=== PATIENT | male | born 1970 | race Caucasian/White ===

== ENCOUNTER → 2016-11-29 | Outpatient (CLI) | payer BC ==
[2016-11-29 07:51] LABS: BASO % 0.3 % (0.0-1.0); EOS # 0.1 10^3/uL (0.0-0.50); EOS % 1.8 % (0.0-3.0); IMMATURE GRANULOCYTE % 0.7 % (0-0); LYMPH # 3.2 10^3/uL (1.5-4.5); LYMPH % 45.1 % (24.0-44.0); MEAN CORPUSCULAR HEMOGLOBIN 30.8 pg (27.0-33.0); MEAN CORPUSCULAR HGB CONC 34.1 g/dl (32.0-36.5); MEAN CORPUSCULAR VOLUME 90.4 fl (80.0-96.0); MONO # 0.6 10^3/uL (0.0-0.8); NEUTROPHILS # 3.1 10^3/uL (1.8-7.7); NEUTROPHILS % 44.1 % (36.0-66.0); PLATELET COUNT, AUTOMATED 268 10^3/uL (150-450); RED CELL DISTRIBUTION WIDTH 12.3 % (11.5-14.5); WHITE BLOOD COUNT 7.1 10^3/uL (4.0-10.0)
[2016-11-29 08:28] LABS: ALBUMIN 3.7 GM/DL (3.2-5.2); ALBUMIN/GLOBULIN RATIO 1.09 (1.00-1.93); ALKALINE PHOSPHATASE 78 U/L (45-117); ALT/SGPT 44 U/L (12-78); ANION GAP 6 MEQ/L (8-16); AST/SGOT 20 U/L (15-37); BILIRUBIN,TOTAL 0.5 MG/DL (0.2-1.0); BLOOD UREA NITROGEN 11 MG/DL (7-18); CALCIUM LEVEL 9.2 MG/DL (8.5-10.1); CARBON DIOXIDE LEVEL 30 MEQ/L (21-32); CHLORIDE LEVEL 104 MEQ/L (98-107); CHOLESTEROL LEVEL 192 MG/DL (<200); CREATININE FOR GFR 0.95 MG/DL (0.70-1.30); GLOMERULAR FILTRATION RATE > 60.0 (>60); GLUCOSE, FASTING 118 MG/DL (70-105); POTASSIUM SERUM 4.3 MEQ/L (3.5-5.1); SODIUM LEVEL 140 MEQ/L (136-145); TOTAL PROTEIN 7.1 GM/DL (6.4-8.2); TRIGLYCERIDES LEVEL 243 MG/DL (<150)
== END ==
LOC: M LAB 07:24
PROVIDERS: ATTEND Nurse Practitioner Family
DX: K21.9 Gastro-esophageal reflux disease without esophagitis (principal); E78.4 Other hyperlipidemia; I10 Essential (primary) hypertension

== ENCOUNTER → 2017-04-10 | Outpatient (REF) | payer BC ==
[2017-04-10 19:24] LABS: INFLUENZA A AMPLIFICATION POSITIVE (NEGATIVE); INFLUENZA B AMPLIFICATION NEGATIVE (NEGATIVE); RSV AMPLIFICATION NEGATIVE (NEGATIVE)
== END ==
LOC: M LAB REF 18:34
DX: J11.1 Influenza due to unidentified influenza virus with other respiratory manifestations (principal)
CPT/HCPCS: 87631

== ENCOUNTER 2017-05-11 10:30 | Emergency (ER) | payer BC ==
[2017-05-11] MEDS: GI COCKTAIL 50ML BTL(HYOSCYAMINE/MAALOX/LIDOCAINE VISCOUS)(1:3:1) PO (10:42)
[2017-05-11] MEDS: NITROGLYCERIN 0.4 MG SUBL TABLET SL (10:42)
[2017-05-11 10:51] LABS: BASO % 0.4 % (0.0-1.0); EOS # 0.1 10^3/uL (0.0-0.50); EOS % 1.5 % (0.0-3.0); HEMATOCRIT 40.6 % (42.0-52.0); HEMOGLOBIN 13.9 g/dl (14.0-18.0); IMMATURE GRANULOCYTE % 0.4 % (0-3.0); LYMPH # 3.1 10^3/uL (1.5-4.5); LYMPH % 46.2 % (24.0-44.0); MEAN CORPUSCULAR HEMOGLOBIN 30.2 pg (27.0-33.0); MEAN CORPUSCULAR HGB CONC 34.2 g/dl (32.0-36.5); MEAN CORPUSCULAR VOLUME 88.1 fl (80.0-96.0); MONO # 0.6 10^3/uL (0.0-0.8); MONO % 8.1 % (0.0-5.0); NEUTROPHILS # 2.9 10^3/uL (1.8-7.7); NEUTROPHILS % 43.4 % (36.0-66.0); PLATELET COUNT, AUTOMATED 250 10^3/uL (150-450); RED BLOOD COUNT 4.61 10^6/uL (4.30-6.10); RED CELL DISTRIBUTION WIDTH 12.4 % (11.5-14.5); WHITE BLOOD COUNT 6.8 10^3/uL (4.0-10.0)
[2017-05-11 10:59] LABS: PROTHROMBIN TIME 13.3 SECONDS (12.4-14.5)
[2017-05-11] MEDS: SUCRALFATE SUSP 1GM/10ML UD PO (11:08)
[2017-05-11 11:11] LABS: ERYTHROCYTE SEDIMENTATION RATE 17 mm/hr (0-15)
[2017-05-11 11:24] LABS: ALBUMIN 3.8 GM/DL (3.2-5.2); ALBUMIN/GLOBULIN RATIO 1.12 (1.00-1.93); ALKALINE PHOSPHATASE 87 U/L (45-117); ALT/SGPT 46 U/L (12-78); ANION GAP 7 MEQ/L (8-16); AST/SGOT 22 U/L (7-37); BILIRUBIN,DIRECT 0.2 MG/DL (0.0-0.2); BILIRUBIN,TOTAL 0.6 MG/DL (0.2-1.0); BLOOD UREA NITROGEN 9 MG/DL (7-18); CALCIUM LEVEL 8.8 MG/DL (8.5-10.1); CARBON DIOXIDE LEVEL 27 MEQ/L (21-32); CHLORIDE LEVEL 105 MEQ/L (98-107); CPK CREATINE PHOSPHOKINASE 136 U/L (39-308); CREATININE FOR GFR 0.89 MG/DL (0.70-1.30); GLOMERULAR FILTRATION RATE > 60.0 (>60); GLUCOSE, FASTING 100 MG/DL (70-100); LIPASE 227 U/L (73-393); POTASSIUM SERUM 4.3 MEQ/L (3.5-5.1); SODIUM LEVEL 139 MEQ/L (136-145); TOTAL PROTEIN 7.2 GM/DL (6.4-8.2); TROPONIN I < 0.02 NG/ML (< 0.10)
[2017-05-11 11:30] LABS: CK-MB VALUE MASS 1.1 NG/ML (0.0-3.6); NT-PRO BNP 8 PG/ML (<125); THYROID STIMULATING HORMONE 0.974 uIU/ML (0.358-3.740)
[2017-05-11 11:43] LABS: D-DIMER QUANT < 270.0 ng/ml (<500)
[2017-05-11] MEDS ORDERED: ISOVUE-370 76% 100ML VIAL (Q9967) As Ordered (12:04)
[2017-05-11 16:54] LABS: CPK CREATINE PHOSPHOKINASE 113 U/L (39-308); MB/CK RELATIVE INDEX 0.88 (< OR =4); TROPONIN I < 0.02 NG/ML (< 0.10)
== END 2017-05-11 17:15 | disposition home or self-care (01) ==
LOC: M ED 10:30
DX: R07.9 Chest pain, unspecified (principal); R00.1 Bradycardia, unspecified; I10 Essential (primary) hypertension; E78.5 Hyperlipidemia, unspecified; F43.10 Post-traumatic stress disorder, unspecified; Z82.49 Family history of ischemic heart disease and other diseases of the circulatory system; Z83.49 Family history of other endocrine, nutritional and metabolic diseases; Z79.82 Long term (current) use of aspirin; Z79.899 Other long term (current) drug therapy
CPT/HCPCS: Q9967

== ENCOUNTER 2018-09-13 10:57 | Day surgery (SDC) | payer BC ==
[~2018-09-13] VITALS: Ht 175.3 cm; Wt 98.4 kg
[~2018-09-13 10:57] MED LIST: ASPI81TA24 PO; ATEN25TA PO; LAMO100T PO; LANS15CA PO; LIPI20TA PO; MULTCAP PO; NS 1,000 ML IV ONE; PEPC1TAB5 PO; SUCR1SS PO; VALS1TAB67 PO; VENL75CA47 PO; VITA500T PO
[2018-09-13] MEDS ORDERED: LIDOCAINE 2% INJ 100 MG/5 ML SDV (FOR ANES.) As Ordered ONE (13:31)
[2018-09-13] MEDS ORDERED: PROPOFOL 200 MG/20 ML VIAL As Ordered ONE ×2 (13:31→14:07)
--- NOTE | 2018-09-13 14:12 | ROOR ---
Patient Name: Rashard Madrid Procedure Date: 09/13/2018 1:44 PM Date of : 1970 Age: 48 Room: [facility] Gender: Male Note Status: Finalized Procedure: Colonoscopy Indications: Chronic diarrhea Providers: Otoniel Walker Jr, MD Referring MD: Leo Alcazar NP Requesting Provider: Medicines: Propofol per Anesthesia Complications: No immediate complications. Procedure: Pre-Anesthesia Assessment: - Prior to the procedure, a History and Physical was performed, and patient medications and allergies were reviewed. The patient is competent. The risks and benefits of the procedure and the sedation options and risks were discussed with the patient. All questions were answered and informed consent was obtained. Patient identification and proposed procedure were verified by the physician and the nurse in the pre-procedure area and in the procedure room. Mental Status Examination: alert and oriented. Airway Examination: normal oropharyngeal airway and neck mobility. Respiratory Examination: clear to auscultation. CV Examination: normal. ASA Grade Assessment: II - A patient with mild systemic disease. After reviewing the risks and benefits, the patient was deemed in satisfactory condition to undergo the procedure. The anesthesia plan was to use moderate sedation / analgesia (conscious sedation). Immediately prior to administration of medications, the patient was re-assessed for adequacy to receive sedatives. The heart rate, respiratory rate, oxygen saturations, blood pressure, adequacy of pulmonary ventilation, and response to care were monitored throughout the procedure. The physical status of the patient was re-assessed after the procedure. The Colonoscope was introduced through the anus and advanced to the cecum, identified by appendiceal orifice and ileocecal valve. The colonoscopy was performed without difficulty. The patient tolerated the procedure well. The quality of the bowel preparation was adequate. Findings: The rectum, recto-sigmoid colon, sigmoid colon, descending colon, transverse colon, ascending colon, cecum, appendiceal orifice and ileocecal valve appeared normal. Biopsies for histology were taken with a cold forceps from the ascending colon, transverse colon, descending colon and sigmoid colon for evaluation of microscopic colitis. For hemostasis, one hemostatic clip was successfully placed. There was no bleeding at the end of the procedure. The distal ileum appeared normal. Biopsies were taken with a cold forceps for histology. Impression: - The rectum, recto-sigmoid colon, sigmoid colon, descending colon, transverse colon, ascending colon, cecum, appendiceal orifice and ileocecal valve are normal. Biopsied. Clip was placed. - The examined portion of the ileum was normal. Biopsied. Recommendation: - Discharge patient to home (ambulatory). - Repeat colonoscopy in 10 years for screening purposes. Otoniel Walker MD Ootniel Walker Jr, MD 09/13/2018 2:11:52 PM Electronically signed by Otoniel Walker Jr, MD Number of Addenda: 0 Note Initiated On: 09/13/2018 1:44 PM Estimated Blood Loss: Estimated blood loss: none.
[2018-09-13 14:39] VITALS: BP 141/95
== END 2018-09-13 14:41 | disposition home or self-care (01) ==
LOC: M OPP 10:57
PROVIDERS: ATTEND Surgery
DX: K52.9 Noninfective gastroenteritis and colitis, unspecified (principal); Z79.899 Other long term (current) drug therapy

== ENCOUNTER → 2019-06-07 | Outpatient (CLI) | payer BC ==
[~2019-06-07] MED LIST changes: -LAMO100T PO; +LAMO100T3 PO; -NS 1,000 ML IV ONE
== END ==
LOC: M LABSMTC 10:18
PROVIDERS: ATTEND Family Medicine
DX: Z11.59 Encounter for screening for other viral diseases (principal); Z20.828 Contact with and (suspected) exposure to other viral communicable diseases

== ENCOUNTER → 2021-05-12 | Outpatient (CLI) | payer BC ==
[~2021-05-12] MED LIST changes: +ISOVUE-300 61% 50ML VIAL As Ordered ONE; +LIDOCAINE 1% MDV 20ML VIAL As Ordered ONE; +PROHANCE 279.3MG/ML 5ML VIAL As Ordered ONE; +VITA-243 PO; -VITA500T PO
== END ==
LOC: M RADPRO 07:02
PROVIDERS: ATTEND Physician Assistant
DX: S63.592D Other specified sprain of left wrist, subsequent encounter (principal)
CPT/HCPCS: 25246; 73223; 77002; A9576; Q9967

== ENCOUNTER 2022-08-29 04:20 | Inpatient (IN) | payer BC ==
[~2022-08-29] VITALS: Ht 175.3 cm; Wt 106.8 kg
[~2022-08-29 04:20] MED LIST changes: -ISOVUE-300 61% 50ML VIAL As Ordered ONE; -LIDOCAINE 1% MDV 20ML VIAL As Ordered ONE; -PROHANCE 279.3MG/ML 5ML VIAL As Ordered ONE
[2022-08-29] MEDS ORDERED: AMLO1TAB25 (04:39)
[2022-08-29] MEDS ORDERED: GABA-1171 (04:39)
[2022-08-29] MEDS ORDERED: MELO15TA28 (04:39)
[2022-08-29 05:28] LABS: HEMATOCRIT 41.3 % (42.0-52.0); MEAN CORPUSCULAR HEMOGLOBIN 29.9 pg (27.0-33.0); MEAN CORPUSCULAR HGB CONC 33.9 g/dl (32.0-36.5); MEAN CORPUSCULAR VOLUME 88.2 fl (80.0-96.0); PLATELET COUNT, AUTOMATED 300 10^3/uL (150-450); RED BLOOD COUNT 4.68 10^6/uL (4.30-6.10)
[2022-08-29 05:56] LABS: ETHYL ALCOHOL (ETHANOL) 0.251 % (0.000-0.010)
[2022-08-29 05:57] LABS: ACETAMINOPHEN LEVEL < 2.0 UG/ML (10.0-20.0); ALBUMIN 4.1 G/DL (3.2-5.2); ALKALINE PHOSPHATASE 102 U/L (46-116); ALT/SGPT 37 U/L (7.0-40); AST/SGOT 23 U/L (<34); BILIRUBIN,DIRECT 0.1 MG/DL (<0.4); BILIRUBIN,TOTAL 0.4 MG/DL (0.3-1.2); BLOOD UREA NITROGEN 7 MG/DL (9-23); CALCIUM LEVEL 8.8 MG/DL (8.5-10.1); CARBON DIOXIDE LEVEL 24 MMOL/L (20-31); CHLORIDE LEVEL 104 MMOL/L (98-107); CREATININE FOR GFR 0.85 MG/DL (0.70-1.30); GLOMERULAR FILTRATION RATE > 60.0 (>56); GLUCOSE, FASTING 103 MG/DL (60-100); POTASSIUM SERUM 3.9 MMOL/L (3.5-5.1); SALICYLATE LEVEL < 3.0 MG/DL (<30); SODIUM LEVEL 138 MMOL/L (136-145); TOTAL PROTEIN 7.3 G/DL (5.7-8.2)
[2022-08-29 05:59] LABS: THYROID STIMULATING HORMONE 1.306 uIU/ML (0.55-4.78)
[2022-08-29] MEDS ORDERED: NS 1,000 ML IV ONE (06:35)
[2022-08-29 16:19] LABS: AMPHETAMINES LEVEL URINE NEGATIVE (NEGATIVE); BARBITURATES URINE NEGATIVE (NEGATIVE); BENZODIAZEPINES URINE NEGATIVE (NEGATIVE); CANNABINOIDS URINE NEGATIVE (NEGATIVE); COCAINE METABOLITE URINE NEGATIVE (NEGATIVE); METHADONE URINE NEGATIVE (NEGATIVE); OPIATES URINE NEGATIVE (NEGATIVE); PHENCYCLIDINE URINE NEGATIVE (NEGATIVE)
[2022-08-29] MEDS ORDERED: LORazepam 2 MG TAB PO PRN (16:35)
[2022-08-29] MEDS ORDERED: MAALOX 30 ML SUSP *UDC PO PRN (16:35)
[2022-08-29] MEDS ORDERED: ACETAMINOPHEN TAB 650MG DOSE (2X325MG) PO PRN (16:35)
[2022-08-29] MEDS ORDERED: diphenhydrAMINE 25MG CAP PO PRN (16:35)
[2022-08-29] MEDS ORDERED: MOM 30ML SUSPENSION UDC PO PRN (16:35)
[2022-08-29] MEDS ORDERED: IBUPROFEN 400MG TAB PO PRN (16:35)
[2022-08-29] MEDS ORDERED: traZODone 50 MG TAB PO PRN (16:35)
[2022-08-29 19:01] VITALS: BP 162/82; TEMP 97.5; O2SAT 99
[2022-08-29] MEDS: THIAMINE 100 MG TAB PO SCH (20:44)
[2022-08-29 20:45] VITALS: BP 158/86; TEMP 98.2; O2SAT 98
[2022-08-29] MEDS ORDERED: VALSARTAN 80 MG TAB (DIOVAN) PO ONE (21:05)
[2022-08-30] VITALS (9 sets, daily range): BP systolic 130–166; BP diastolic 86–100; TEMP 98–98.7; O2SAT 97
[2022-08-30] MEDS ORDERED: AMLO1TAB25 PO (06:51)
[2022-08-30] MEDS ORDERED: MELO15TA28 PO (06:54)
[2022-08-30] MEDS ORDERED: GABA-1171 PO (06:54)
[2022-08-30] MEDS ORDERED: LANS30CA93 PO (06:54)
[2022-08-30] MEDS ORDERED: D 50CAP2 PO (06:54)
[2022-08-30] MEDS ORDERED: HOME MED LIST COMPLETE! XX SCH (06:55)
[2022-08-30] MEDS: THIAMINE 100 MG TAB PO SCH ×2 (08:53→20:54)
[2022-08-30] MEDS ORDERED: MULTIVITAMINS/MINERALS THERAP 1 TAB PO SCH (09:00)
[2022-08-30] MEDS ORDERED: FOLIC ACID 1MG TAB PO SCH (09:00)
[2022-08-30] MEDS ORDERED: atenoloL 25 MG TAB PO SCH (09:00)
[2022-08-30] MEDS: VENLAFAXINE **XR** 75MG CAPSULE PO SCH (10:38)
[2022-08-30] MEDS: ATORVASTATIN 20 MG TAB PO SCH (10:38)
[2022-08-30] MEDS: ASCORBIC ACID 500 MG TAB PO SCH (10:38)
[2022-08-30] MEDS: VITAMIN D 1,000 INTERNATIONAL UNITS TABLET PO SCH (10:39)
[2022-08-30] MEDS: MELOXICAM (MOBIC) 7.5 MG TAB PO SCH (10:39)
[2022-08-30] MEDS: lamoTRIgine 100MG TAB PO SCH ×2 (10:40→20:53)
[2022-08-30] MEDS: GABAPENTIN 100 MG CAP PO SCH ×2 (10:40→20:54)
[2022-08-30] MEDS: NALTREXONE 50 MG TAB PO SCH (10:43)
[2022-08-30] MEDS: cloNIDine 0.1MG TABLET PO SCH ×3 (13:56→23:36)
[2022-08-30] MEDS ORDERED: ONDANSETRON 4MG ORAL DISINTEGRATING TAB SL PRN (14:00)
[2022-08-30] MEDS: ISOSORBIDE DIN (ISORDIL) 10MG TAB PO SCH ×2 (14:35→20:51)
[2022-08-30] MEDS: VALSARTAN 80 MG TAB (DIOVAN) PO SCH (20:54)
[2022-08-31] MEDS: cloNIDine 0.1MG TABLET PO SCH (05:40)
[2022-08-31 06:10] VITALS: BP 132/76; TEMP 96.8; O2SAT 95
[2022-08-31 07:07] LABS: CHOLESTEROL RISK RATIO 3.88 (<5); HDL CHOLESTEROL 46.6 MG/DL (>40); LDL CHOLESTEROL 112.4 MG/DL (<100); NON-HDL-C 134.4 MG/DL
[2022-08-31 09:07] VITALS: BP_SYST 144; BP_DIAS 77; BP_DIAS 78
[2022-08-31] MEDS: GABAPENTIN 100 MG CAP PO SCH ×2 (09:09→20:48)
[2022-08-31] MEDS: ISOSORBIDE DIN (ISORDIL) 10MG TAB PO SCH (09:09)
[2022-08-31] MEDS: ATORVASTATIN 20 MG TAB PO SCH (09:09)
[2022-08-31] MEDS: MELOXICAM (MOBIC) 7.5 MG TAB PO SCH (09:09)
[2022-08-31] MEDS: lamoTRIgine 100MG TAB PO SCH ×2 (09:09→20:48)
[2022-08-31] MEDS: VENLAFAXINE **XR** 75MG CAPSULE PO SCH (09:10)
[2022-08-31] MEDS: PILL CUTTER 1 EACH XX PRN (09:10)
[2022-08-31] MEDS: VITAMIN D 1,000 INTERNATIONAL UNITS TABLET PO SCH (09:10)
[2022-08-31] MEDS: NALTREXONE 50 MG TAB PO SCH (09:10)
[2022-08-31] MEDS: ASCORBIC ACID 500 MG TAB PO SCH (09:10)
[2022-08-31] MEDS: ISOSORBIDE DIN. (ISORDIL) 20 MG TAB PO SCH (18:20)
[2022-08-31 18:27] VITALS: BP 138/78; TEMP 97
[2022-08-31] MEDS: VALSARTAN 80 MG TAB (DIOVAN) PO SCH (20:49)
[2022-09-01 06:46] VITALS: BP 163/84; TEMP 97; O2SAT 97
[2022-09-01] MEDS ORDERED: VALSARTAN 80 MG TAB (DIOVAN) PO ONE (07:45)
[2022-09-01 07:49] VITALS: BP 158/86
[2022-09-01] MEDS: MELOXICAM (MOBIC) 7.5 MG TAB PO SCH (08:00)
[2022-09-01] MEDS: lamoTRIgine 100MG TAB PO SCH (08:00)
[2022-09-01] MEDS: VENLAFAXINE **XR** 75MG CAPSULE PO SCH (08:00)
[2022-09-01] MEDS: GABAPENTIN 100 MG CAP PO SCH (08:02)
[2022-09-01] MEDS: VITAMIN D 1,000 INTERNATIONAL UNITS TABLET PO SCH (08:03)
[2022-09-01] MEDS: PILL CUTTER 1 EACH XX PRN (08:03)
[2022-09-01] MEDS: NALTREXONE 50 MG TAB PO SCH (08:03)
[2022-09-01] MEDS: ATORVASTATIN 20 MG TAB PO SCH (08:03)
[2022-09-01 08:10] VITALS: BP 158/86
[2022-09-01] MEDS: ISOSORBIDE DIN. (ISORDIL) 20 MG TAB PO SCH (08:10)
[2022-09-01] MEDS ORDERED: ISOS20TA4 PO (08:39)
[2022-09-01] MEDS ORDERED: NALT50TA4 PO (08:39)
[2022-09-01] MEDS ORDERED: LAMI1TAB9 PO (08:39)
== END 2022-09-01 09:13 | DRG 755 ==
LOC: M ED 04:20 → M ED INP 18:20 → M PSY 18:23
PROVIDERS: ADMIT Student in an Organized Health Care Education/Training Program; ATTEND Student in an Organized Health Care Education/Training Program
DX: F43.10 Post-traumatic stress disorder, unspecified (principal); R13.10 Dysphagia, unspecified; I10 Essential (primary) hypertension; F10.24 Alcohol dependence with alcohol-induced mood disorder; G47.33 Obstructive sleep apnea (adult) (pediatric); K21.9 Gastro-esophageal reflux disease without esophagitis; E66.9 Obesity, unspecified; F51.9 Sleep disorder not due to a substance or known physiological condition, unspecified; Z68.34 Body mass index [BMI] 34.0-34.9, adult; Z63.4 Disappearance and death of family member; Z79.899 Other long term (current) drug therapy

== ENCOUNTER → 2022-12-29 | Outpatient (CLI) | payer BC ==
[~2022-12-29] MED LIST changes: +AMLO1TAB25; +AMLO1TAB25 PO; +D 50CAP2 PO; +GABA-1171; +GABA-1171 PO; +ISOS20TA4 PO; +LAMI1TAB9 PO; +LANS30CA93 PO; +MELO15TA28; +MELO15TA28 PO; +NALT50TA4 PO
[2022-12-29 09:34] LABS: BASO % 0.5 % (0.0-1.0); EOS # 0.1 10^3/uL (0.0-0.5); EOS % 2.1 % (0.0-3.0); HEMATOCRIT 42.3 % (42.0-52.0); HEMOGLOBIN 13.9 g/dl (13.5-17.5); LYMPH # 2.9 10^3/uL (1.5-5.0); LYMPH % 45.9 % (24.0-44.0); MEAN CORPUSCULAR HEMOGLOBIN 28.5 pg (27.0-33.0); MEAN CORPUSCULAR HGB CONC 32.9 g/dl (32.0-36.5); MEAN CORPUSCULAR VOLUME 86.7 fl (80.0-96.0); MONO # 0.8 10^3/uL (0.0-0.8); NEUTROPHILS # 2.5 10^3/uL (1.5-8.5); PLATELET COUNT, AUTOMATED 281 10^3/uL (150-450); RED BLOOD COUNT 4.88 10^6/uL (4.30-6.10); WHITE BLOOD COUNT 6.3 10^3/uL (4.0-10.0)
[2022-12-29 10:05] LABS: ALBUMIN 4.1 G/DL (3.2-5.2); ALKALINE PHOSPHATASE 111 U/L (46-116); ALT/SGPT 40 U/L (7.0-40); AST/SGOT 22 U/L (<34); BILIRUBIN,TOTAL 0.4 MG/DL (0.3-1.2); BLOOD UREA NITROGEN 6 MG/DL (9-23); CALCIUM LEVEL 9.1 MG/DL (8.5-10.1); CARBON DIOXIDE LEVEL 30 MMOL/L (20-31); CHLORIDE LEVEL 101 MMOL/L (98-107); GLOMERULAR FILTRATION RATE > 60.0 (>56); GLUCOSE, FASTING 100 MG/DL (60-100); POTASSIUM SERUM 4.5 MMOL/L (3.5-5.1); SODIUM LEVEL 139 MMOL/L (136-145); TOTAL PROTEIN 7.3 G/DL (5.7-8.2)
== END ==
LOC: M LAB 08:53
PROVIDERS: ATTEND Nurse Practitioner Family
DX: M54.50 Low back pain, unspecified (principal); R82.90 Unspecified abnormal findings in urine

== ENCOUNTER → 2023-06-28 | Outpatient (CLI) | payer BC | LOC: M RAD 13:57 | PROVIDERS: ATTEND Nurse Practitioner Family | DX: R60.0 Localized edema (principal) ==

== ENCOUNTER → 2024-06-07 | Outpatient (REF) | payer BC ==
[2024-06-07 16:07] LABS: APPEARANCE, URINE CLEAR (CLEAR); BACTERIA, URINE AUTO NEGATIVE (NEGATIVE); BILIRUBIN, URINE AUTO NEGATIVE (NEGATIVE); BLOOD, URINE BLOOD NEGATIVE (NEGATIVE); COLOR, URINE YELLOW (YELLOW); GLUCOSE, URINE (UA) AUTO NEGATIVE (NEGATIVE); KETONE, URINE AUTO NEGATIVE (NEGATIVE); LEUKOCYTE ESTERASE, URINE AUTO NEGATIVE (NEGATIVE); NITRITE, URINE AUTO NEGATIVE (NEGATIVE); PROTEIN, URINE AUTO NEGATIVE (NEGATIVE); RBC, URINE AUTO 0 /HPF (0-3); SPECIFIC GRAVITY URINE AUTO 1.004 (1.002-1.035); SQUAMOUS EPITHELIAL CELL UR AU 0 /HPF (0-6); UROBILINOGEN, URINE AUTO 0.2 mg/dL (0.0-2.0); WBC, URINE AUTO 0 /HPF (0-3)
== END ==
LOC: M SMT 15:30
PROVIDERS: ATTEND Nurse Practitioner Family
DX: R39.11 Hesitancy of micturition (principal)